=== PATIENT | male | born 1995 | race African-American/Black ===

== ENCOUNTER 2020-05-20 21:46 | Emergency (ER) | payer SELFPAY ==
[~2020-05-20] VITALS: Ht 172.7 cm; Wt 81.6 kg
[2020-05-20 21:55] VITALS: BP 128/85
--- NOTE | 2020-05-20 21:55 | NUR ---
ED Nurse Note: Patient brought in by THOMAS for medical clearance. Patient aao x 4 and ambulatory upon arrival. Forensic log filled out. Patient states he is diabetic, accucheck upon arrival 108 mg/dL, ERMD aware. Patient stable during assessment.
--- NOTE | 2020-05-20 22:01 | Emergency Room Report ---
History of Present Illness General Chief Complaint: Medical Clearance Source: Patient Present Illness HPI 24-year-old male history of diabetes however takes no medications says he may take insulin is not sure has not taken insulin for a long time presents for medical clearance currently has no complaints at this time patient presents for evaluation denies any trauma Allergies: Coded Allergies: No Known Allergies (Unverified , 05/20/20) COVID-19 Screening Contact w/high risk pt: No Experienced COVID-19 symptoms?: No COVID-19 Testing performed [employer]: No Patient History Past Medical History: see triage record Reviewed Nursing Documentation: PMH: Agreed; PSxH: Agreed Nursing Documentation-PMH Past Medical History: No Stated History Review of Systems All Other Systems: negative except mentioned in HPI Physical Exam Vital Signs Date Time Temp Pulse Resp B/P (MAP) Pulse Ox O2 Delivery O2 Flow Rate FiO2 05/20/20 21:51 98.2 96 15 135/88 (104) 98 Room Air General Appearance: well appearing, no apparent distress Head: normocephalic, atraumatic ENT: hearing grossly normal, normal voice Neck: full range of motion, supple Respiratory: no respiratory distress, speaking full sentences Neurologic: alert, normal gait Psychiatric: mood/affect normal, anxious Skin: no rash Medical Decision Making Diagnostic Impression: Primary Impression: Medical clearance for incarceration ER Course 24-year-old male presents with medical clearance currently has no complaints, no indications for acutely starting insulin at this time patient shows no Kussmaul breathing not in acute distress no altered mental status patient is currently being arrested. Patient without any complaints disposition home with return precaution outpatient work-up for possible diabetes patient is currently not on any insulin not remember if he is a type I or type II but has not taken insulin for a long time Laboratory Tests Test 05/20/20 21:54 POC Whole Blood Glucose 108 MG/DL (74-106) H Last Vital Signs Date Time Temp Pulse Resp B/P (MAP) Pulse Ox O2 Delivery O2 Flow Rate FiO2 05/20/20 21:51 98.2 96 15 135/88 (104) 98 Room Air Disposition: LAW ENFORCEMENT IN CUST Condition: Stable Referrals: [facility] Patient Instructions: Medical Screening Exam Additional Instructions: The patient was provided with discharge instructions, notified to follow-up with a primary care doctor and or specialist in the next 24-48 hours, and to return to the ED if they have worsening of their symptoms. Please note that this report is being documented using [employer] technology. This can lead to erroneous entry secondary to incorrect interpretation by the dictating instrument. Tr Hurtado MD May 20, 2020 22:01
[2020-05-20 22:04] VITALS: BP 128/86
--- NOTE | 2020-05-20 22:04 | NUR ---
ER DISCHARGE NOTE: Patient is cleared okay to book with [facility] per ERMD, pt is aox4, on room air, with stable vital signs. Officer Edwar given discharge papework, was able to verbalize understanding, pt id band removed. pt is able to ambulate with steady gait. pt took all belongings. pt stable upon discharge accompanied by THOMAS.
== END 2020-05-20 22:04 ==
LOC: EMR 22:00
DX: Z02.89 Encounter for other administrative examinations (principal); E11.9 Type 2 diabetes mellitus without complications
CPT/HCPCS: 82962; 99281